=== PATIENT | male | born 1955 | race Caucasian/White ===

== ENCOUNTER 2018-08-09 15:29 | Emergency (ER) | payer MEDICARE ==
[~2018-08-09] VITALS: Ht 182.9 cm; Wt 82.7 kg
[2018-08-09 16:01] VITALS: BP 143/70
[2018-08-09] MEDS ORDERED: METO50 PO (16:22)
[2018-08-09] MEDS ORDERED: LISI-662 PO (16:22)
[2018-08-09] MEDS ORDERED: ROSU20TA23 PO (16:22)
[2018-08-09] MEDS ORDERED: ASPI-891 PO (16:22)
== END 2018-08-09 16:45 | disposition left against medical advice (07) ==
LOC: EMS 15:29
DX: R11.2 Nausea with vomiting, unspecified (principal)